=== PATIENT | female | born 1945 | race Caucasian/White ===

== ENCOUNTER → 2019-08-12 15:18 | Outpatient (BNVA) | payer MEDICARE, OTHER, SELFPAY | PROVIDERS: Family Provider Family Medicine; Referring Provider Family Medicine; Visit Provider Podiatrist Foot & Ankle Surgery | DX: M79.671 Pain in right foot (principal) | CPT/HCPCS: 73630 ==

== ENCOUNTER 2020-02-09 07:20 | Outpatient (CLI) | payer MEDICARE, OTHER, SELFPAY ==
--- NOTE | 2020-02-09 07:25 | MM_ITS ---
WS: [id number] BILATERAL DIGITAL SCREENING MAMMOGRAPHY WITH CAD CLINICAL INFORMATION: SCREENING HISTORY: Screening mammogram. Right breast lump COMPARISON: TECHNIQUE: Bilateral CC and MLO views. FINDINGS: The breasts are composed of heterogeneous fibroglandular density tissue, which can limit the detectio n of small underlying mass lesions. Bilateral punctate and lucent centered calcifications. Area of pa lpable concern in the right breast is not included on this study. Palpable area of concern is posteri or and far lateral and not able to be captured mammographically. Recommend further evaluation with carley martinez. Left breast is unremarkable and unchanged. Biopsy clip left breast. Punctate and clustered calcificat ions upper outer left breast and right posterior nipple line appear stable. MM/[id number] IMPRESSION: BI-RADS: 0-Incomplete: Need additional imaging evaluation FOLLOW UP: Need Additional Imaging RECOMMEND RIGHT BREAST ULTRASOUND IN THE AREA OF PALPABLE CONCERN.
== END 2020-02-09 07:21 | disposition home or self-care (01) ==
LOC: RADSHAW 07:24
PROVIDERS: PCP Family Medicine; Visit Provider Family Medicine
DX: Z12.31 Encounter for screening mammogram for malignant neoplasm of breast (principal); R92.1 Mammographic calcification found on diagnostic imaging of breast; N63.10 Unspecified lump in the right breast, unspecified quadrant
CPT/HCPCS: 77067

== ENCOUNTER 2020-03-01 07:07 | Outpatient (CLI) | payer MEDICARE, OTHER, SELFPAY ==
--- NOTE | 2020-03-01 07:20 | US_ITS ---
WS: [id number] ULTRASOUND BREAST RIGHT TECHNIQUE: Ultrasound right breast focused area of concern. CLINICAL INFORMATION: ABNORMAL MAMMO COMPARISON: None. FINDINGS: Ultrasound right breast 9 and 10:00 position in the area of palpable concern. Normal underlying paren chymal tissue. No evidence of cystic or solid mass. No lesions to target for biopsy. US/US breast RT complete [id number] IMPRESSION: BI-RADS 2 benign Recommend return to annual screening mammography.
== END 2020-03-01 07:08 | disposition home or self-care (01) ==
LOC: RAD 07:15
PROVIDERS: PCP Family Medicine; Visit Provider Family Medicine
DX: R92.8 Other abnormal and inconclusive findings on diagnostic imaging of breast (principal)
CPT/HCPCS: 76641

== ENCOUNTER 2021-02-28 07:18 | Outpatient (CLI) | payer MEDICARE, OTHER, SELFPAY ==
--- NOTE | 2021-02-28 07:26 | MM_ITS ---
WS: [id number] BILATERAL SCREENING DIGITAL MAMMOGRAM WITH CAD HISTORY: SCREENING COMPARISON: 02/09/2020, 02/03/2019, 01/31/2018 and 01/11/2015 Bilateral CC and MLO views submitted. Computer aided detection analyzed. Breast composition: The breasts are heterogeneously dense, which may obscure small masses. There is a n area of architectural distortion in the posterior RIGHT breast at 11-12 o'clock with adjacent dystr ophic calcifications. This distortion has been present on multiple prior examinations and may be a po stbiopsy scar. There are additional calcifications scattered throughout each breast which are stable. MM/[id number] IMPRESSION: BI-RADS: 2-Benign FOLLOW UP: 1 Year Follow-up
== END 2021-02-28 07:19 | disposition home or self-care (01) ==
LOC: RADSHAW 07:23
PROVIDERS: PCP Family Medicine; Visit Provider Family Medicine
DX: Z12.31 Encounter for screening mammogram for malignant neoplasm of breast (principal)
CPT/HCPCS: 77067

== ENCOUNTER 2022-03-16 12:47 | Outpatient (CLI) | payer MEDICARE, OTHER, SELFPAY ==
--- NOTE | 2022-03-16 13:08 | MM_ITS ---
WS: [id number] BILATERAL 3D TOMOSYNTHESIS DIGITAL SCREENING MAMMOGRAPHY WITH CAD CLINICAL INFORMATION: SCREENING HISTORY: Screening mammogram. No current complaints. COMPARISON: February 28, 2021 TECHNIQUE: Bilateral CC and MLO views. FINDINGS: The breasts are composed of heterogeneous fibroglandular density tissue, which can limit the detectio n of small underlying mass lesions. No suspicious mass, asymmetry, calcifications, or architectural d istortion. No evidence of malignancy. Punctate and lucent centered calcifications. Biopsy clip LEFT b reast. Stable clustered calcifications anterior RIGHT breast. Stable clustered calcifications LEFT br east. MM/[place] [id number] IMPRESSION: BI-RADS: 2-Benign FOLLOW UP: 1 Year Follow-up Recommend return to annual screening mammography.
== END 2022-03-16 12:48 | disposition home or self-care (01) ==
LOC: RAD 12:51
PROVIDERS: PCP Family Medicine; Visit Provider Family Medicine
DX: Z12.31 Encounter for screening mammogram for malignant neoplasm of breast (principal)
CPT/HCPCS: 77063; 77067

== ENCOUNTER 2022-12-09 14:44 | Emergency (ER) | payer MEDICARE, OTHER, SELFPAY ==
[2022-12-09 14:45] VITALS: BP 133/81; PULSE 89; RESP 18; TEMP 36.9; O2SAT 99; BMI 26.7
--- NOTE | 2022-12-09 14:53 | ED_ITS ---
HPI - Fall General: Chief Complaint: Fall Stated Complaint: LEFT FOREHEAD/WRIST PAIN S/P FALL Time Seen by Provider: 12/09/22 14:46 History of Present Illness: 77-year-old female presents emergency department via EMS personnel after having an accidental fall in her garage. She states she was walking and caught her toe on the corner of a stationary object falling forward and hitting her head on the concrete in her garage. She denies loss of consciousness, dizziness or lightheaded feeling. She states she does have some slight neck tenderness to the right side. She states she was ambulatory after the fall and is not in a c- collar upon arrival to the emergency department. She is turning her head left and right and up and down without difficulty. It does appear that she does have some point tenderness to the right trapezius muscle but there is no crepitus or deformity or obvious step-offs on initial exam. She also complains of left wrist pain which is obviously swollen and mildly deformed. She states her current wrist pain is a 5 out of 10 and throbbing. She does have a laceration to the left forehead area and the bleeding is well controlled at present. Associated symptoms-after fall: Reports headache(s) Review of Systems General: Reports: 10 or more systems reviewed and unremarkable except in HPI and below Musc: Reports: extremity pain, extremity swelling (Left wrist), joint pain and joint swelling Skin/Breast: Reports: other (Laceration forehead) Neuro: Reports: headache(s) [facility] ED PFSH: Medical History (Updated 12/09/22 @ 17:24 by Cresencio Crews MD) Accelerated essential hypertension High blood cholesterol Hx of benign breast biopsy Surgical History H/O cataract extraction H/O oral surgery H/O removal of cyst RT thumb H/O: hysterectomy History of carpal tunnel release Family History Brother Diabetes Other Chronic kidney disease (CKD) Dementia Family history of premature coronary artery disease Hypertension Social History Smoking and tobacco/nicotine status: current every day tobacco/nicotine user Alcohol intake: never Substance/Drug Use: never Physical Exam Narrative: EXAM NARRATIVE: Constitutional: the patient appeared well nourished and normally developed. Vital signs as documented. HENMT: Head exam demonstrates a 6 cm laceration length and 0.5mm depth to the left forehead area. Neck is without jugular venous distension, thyromegaly, or carotid bruits. Carotid upstrokes are brisk bilaterally. Right lateral trapezius point tenderness, there is no step-offs, crepitus, tenderness to palpation to the vertebral processes. There is no obvious deformity noted. Eye: No scleral icterus or PERRLA, EOMI Resp: Lungs are clear to auscultation and percussion. Cardio: Cardiac exam reveals the PMI to be normally sized and situated. Rhythm is regular. First and second heart sounds normal. No murmurs, rubs or gallops. GI: Abdominal exam reveals normal bowel sounds, no masses, no organomegaly and no aortic enlargement. Soft, nontender to palpation. No obvious palpable ma sses noted. No hepatomegaly appreciated. Extremity: Extremities are non-edematous and both femoral and pedal pulses are normal. Moves all extremities well, she has sensation in all extremities. The re is obvious mild deformity to the left wrist consistent with a closed fracture, she does have bruising and swelling to the left wrist. Capillary refill to the extremity is less than 3 seconds. Sensation does appear to be intact. Neuro: Alert and oriented x4, person, place, time and situation. Cranial nerves II through XII are grossly intact, there is no focal neurological deficits that I can appreciate at present. Motor strength in the upper and lower extremities are equal and bilateral 5/5. Psych: Cooperative, calm, normal thought process, appropriate judgment. Skin: No lesions, rashes. Course ED course: Laceration Repair: The patient verbally consents to a wound repair. A time out was performed. Side and sight are verified. Patient identification is verified. The wound is anesthetized with- 5ml of 1% Lidocaine with epinephrine It is then copiously irrigated with sterile saline and cleansed with saline and betadine mixture. The wound measures [6 cm-]. It is approximated using simple interrupted sutures with [-5-0-] Ethilon. Total number [-*5-]. Good approximation is achieved. Hemostasis is maintained. It is dressed with antibiotic ointment and a bulky dressing. Follow-up instructions were provided to the patient. The patient was educated on the signs of infection and return precautions. The patient was advised to follow-up with a medical provider in 10-14 days to have the would evaluated for possible suture removal. Vital Signs: Vital signs: Vital Signs Temperature 98.4 F 12/09/22 14:45 Pulse Rate 89 12/09/22 14:45 Respiratory Rate 18 12/09/22 14:45 Blood Pressure 133/81 12/09/22 14:45 Pulse Oximetry 99 12/09/22 15:33 Oxygen Delivery Me thod Room Air 12/09/22 14:45 MDM - Fall Medical Decision Making Physical exam completed and documented, I will update her tetanus shot as well as provide her wound care and evaluate the laceration for need of repair. I will also obtain a CT scan of her head and CT of her cervical spine given her age of 77 and the mechanism of injury with her fall. I will obtain a left wrist x-ray to evaluate for fracture I have offered the patient pain medications and at this time she has requested that she not receive anything additional. I did provide her an ice pack for temporary comfort. Lab Data Radiology Impressions Cervical Spine CT 12/09/22 14:53 IMPRESSION: No acute findings. Head CT 12/09/22 14:53 IMPRESSION: No acute intracranial abnormality. Wrist X-Ray 12/09/22 14:53 IMPRESSION: Mild degenerative changes 1st CMC joint. No acute abnormalities. All radiology interpretation(s) finalized by discharge Discharge Plan Discharge Patient Disposition: Home Clinical Impression: Fall, Contusion of face, scalp, and neck, Facial laceration Condition: Stable Prescriptions: New cephalexin 500 mg capsule 500 mg PO BID 7 Days Qty: 14 0RF No Action loratadine [Claritin] 10 mg tablet 10 mg PO DAILY triamcinolone acetonide 0.1 % cream 1 applic TOPICAL BID PRN (Reason: Skin Irritation) fluticasone propionate 50 mcg/actuation spray,suspension 2 spray INTRANASAL DAILY Rx Instructions: administer into each nostril ascorbic acid (vitamin C) 500 mg capsule 500 mg PO QAM simvastatin 20 mg tablet 20 mg PO QPM [id number] 1 tab PO QAM Cranberry Plus Vitamin C 140-100 mg capsule 1 cap PO QAM omeprazole 40 mg capsule,delayed release(DR/EC) 40 mg PO DAILY PRN (Reason: Acid Reflux) metoprolol succinate 25 mg tablet extended release 24 hr 25 mg PO QAM Pataday Once Daily Relief 0.2 % Drops 1 drp OPHTHALMIC (EYE) QAM Discharge Orders: Discharge ED (Routine); Ordered 12/09/22 Ordered By: Cresencio Crews Referrals: Tad Clifton MD [Primary Care Provider] - Discharge Diet: Advance as tolerated Discharge Activity: Resume usual activity Activity Restrictions/Additional Instructions: Activity Restrictions/Additional Instructions: Follow-up in 10-14 days with your primary care provider, urgent care or the emergency department to have your wound evaluated for suture removal. It is extremely important to ensure that you take all of your antibiotics and change your dressing 2 times a day and keep it covered for the first 2 to 3 days. Thank you for choosing [facility] for your healthcare needs today. Please realize that you were seen in the Emergency Department and that we are providing you with an emergency medical screening exam and this may not be complete and all inclusive of all the testing and or medical work-up that you may need to determine your ailment or severity of your illness. It is very important that you follow-up as instructed with your Primary care provider or Specialist for additional evaluation and to discuss your medical treatment plan. You may return to the Emergency Department should you have concerns or if your condition changes or worsens in any way. Coding Level of Care Code ED Detail Manager for Dipak Ma
--- NOTE | 2022-12-09 14:53 | XRR_ITS ---
PROCEDURE INFORMATION: Exam: XR Left Wrist Exam date and time: 12/09/2022 3:17 PM Age: 77 years old Clinical indication: Injury or trauma; Fall; Blunt trauma (contusions or hematomas); Wrist; Left; Additional info: Trauma-deformity TECHNIQUE: Imaging protocol: Radiologic exam of the left wrist. Views: 3 or more views. COMPARISON: No relevant prior studies available. FINDINGS: Bones/joints: There are mild degenerative changes 1st CMC joint with some joint space narrowing and subchondral sclerosis. Remaining osseous structures and joint surfaces are unremarkable. No fracture or malalignment. Soft tissues: Unremarkable. XR/XR wrist LT min 3V* [id number] IMPRESSION: Mild degenerative changes 1st CMC joint. No acute abnormalities.
--- NOTE | 2022-12-09 14:53 | CTR_ITS ---
PROCEDURE INFORMATION: Exam: CT Cervical Spine Without Contrast Exam date and time: 12/09/2022 3:10 PM Age: 77 years old Clinical indication: Injury or trauma; Fall; Blunt trauma; Additional info: Trauma fall TECHNIQUE: Imaging protocol: Computed tomography of the cervical spine without contrast. Radiation optimization: All CT scans at this facility use at least one of these dose optimization techniques: automated exposure control; mA and/or kV adjustment per patient size (includes targeted exams where dose is matched to clinical indication); or iterative reconstruction. REPORTING DATA: Count of CT and Cardiac NM exams in prior 12 months: This patient has received 0 known CTs and 0 known cardiac nuclear medicine studies in the 12 months prior to the current study. COMPARISON: CT head wo con* [id number] 12/09/2022 3:05 PM RADIATION DOSE METRICS: Total DLP (mGy-cm): 147.17 FINDINGS: Bones/joints: Slight anterolisthesis C4-C5. No fracture. Degenerative disc disease most prominently C5-C6 and C6-C7. Diffuse facet arthropathy. Lungs: Visualized lung apices are clear. Soft tissues: Unremarkable. CT/CT cervical spin wo con* [id number] IMPRESSION: No acute findings.
--- NOTE | 2022-12-09 14:53 | CTR_ITS ---
PROCEDURE INFORMATION: Exam: CT Head Without Contrast Exam date and time: 12/09/2022 3:05 PM Age: 77 years old Clinical indication: Injury or trauma; Fall; Blunt trauma (contusions or hematomas); Additional info: Trauma fall TECHNIQUE: Imaging protocol: Computed tomography of the head without contrast. Radiation optimization: All CT scans at this facility use at least one of these dose optimization techniques: automated exposure control; mA and/or kV adjustment per patient size (includes targeted exams where dose is matched to clinical indication); or iterative reconstruction. REPORTING DATA: Count of CT and Cardiac NM exams in prior 12 months: This patient has received 0 known CTs and 0 known cardiac nuclear medicine studies in the 12 months prior to the current study. COMPARISON: No relevant prior studies available. RADIATION DOSE METRICS: Total DLP (mGy-cm): 1084.2 FINDINGS: Brain: Mild parenchymal volume loss. No midline shift. No mass, acute infarct, hemorrhage, or extra-axial fluid collection. Cerebral ventricles: No ventriculomegaly. Paranasal sinuses: Visualized sinuses are unremarkable. No fluid levels. Mastoid air cells: Visualized mastoid air cells are well aerated. Bones/joints: Unremarkable. No acute fracture. Soft tissues: Left frontal and periorbital scalp hematoma. CT/CT head wo con* [id number] IMPRESSION: No acute intracranial abnormality.
[2022-12-09 15:33] VITALS: O2SAT 99
[2022-12-09] MEDS: neomycin-poly-bacitracin oint 28 gm 1 APPLIC TOPICAL (17:18)
== END 2022-12-09 17:35 | disposition home or self-care (01) ==
PROVIDERS: Emergency Provider Internal Medicine; PCP Family Medicine
DX: S01.81XA Laceration without foreign body of other part of head, initial encounter (principal); S00.83XA Contusion of other part of head, initial encounter; S00.03XA Contusion of scalp, initial encounter; S10.93XA Contusion of unspecified part of neck, initial encounter; I10 Essential (primary) hypertension; Z72.0 Tobacco use; W18.09XA Striking against other object with subsequent fall, initial encounter
CPT/HCPCS: 12014; 70450; 72125; 73110; 99284

== ENCOUNTER 2023-03-19 13:23 | Outpatient (CLI) | payer MEDICARE, OTHER, SELFPAY ==
--- NOTE | 2023-03-19 14:01 | MM_ITS ---
WS: [id number] BILATERAL 3D TOMOSYNTHESIS DIGITAL SCREENING MAMMOGRAPHY WITH CAD CLINICAL INFORMATION: SCREENING HISTORY: Screening mammogram. No current complaints. COMPARISON: 2022 TECHNIQUE: Bilateral CC and MLO views. FINDINGS: The breasts are composed of heterogeneous fibroglandular density tissue, which can limit the detectio n of small underlying mass lesions. No suspicious mass, asymmetry, calcifications, or architectural d istortion. No evidence of malignancy. Stable clustered and punctate calcifications. Biopsy clip LEFT breast. IMPRESSION: MM/[id number] BI-RADS: 2-Benign FOLLOW UP: 1 Year Follow-up Recommend return to annual screening mammography.
== END 2023-03-19 13:24 | disposition home or self-care (01) ==
LOC: RAD 13:24
PROVIDERS: PCP Family Medicine; Visit Provider Family Medicine
DX: Z12.31 Encounter for screening mammogram for malignant neoplasm of breast (principal)
CPT/HCPCS: 77063; 77067

== ENCOUNTER 2024-07-10 08:37 | Outpatient (CLI) | payer MEDICARE, OTHER, SELFPAY ==
--- NOTE | 2024-07-10 08:45 | MM_ITS ---
WS: [id number] BILATERAL SCREENING DIGITAL TOMOSYNTHESIS MAMMOGRAM WITH CAD HISTORY: SCREENING COMPARISON: 02/09/2020, 02/28/2021 and 03/19/2023 Bilateral CC and MLO views with tomosynthesis and synthetic mammography submitted. Computer aided detection analyzed. Breast composition: The breasts are extremely dense, which lowers the sensitivity of mammography. No suspicious masses, microcalcifications or architectural distortion. Numerous calcifications and asymmetries within each breast. Long-term stability architectural distortion upper outer quadrant RIGHT breast at middle depth. MM/MM [facility] tomosynthesis [id number] IMPRESSION: BI-RADS: 2 - Benign FOLLOW UP: 1 Year Follow-up
== END 2024-07-10 08:38 | disposition home or self-care (01) ==
PROVIDERS: PCP Family Medicine; Visit Provider Family Medicine
DX: Z12.31 Encounter for screening mammogram for malignant neoplasm of breast (principal); R92.343 Mammographic extreme density, bilateral breasts; R92.1 Mammographic calcification found on diagnostic imaging of breast; N64.89 Other specified disorders of breast
CPT/HCPCS: 77063; 77067